=== PATIENT | male | born 2000 | race Caucasian/White ===

== ENCOUNTER 2021-02-18 12:16 | Emergency (ER) | payer BC ==
[2021-02-18] MEDS ORDERED: LIDOCAINE 1% W/EPI 1:100,000 MDV 20 ML VIAL ONE (13:31)
[2021-02-18] MEDS ORDERED: SMZ./TMP. 800/160 MG TABLET ONE (13:43)
[2021-02-18] MEDS ORDERED: DOXYCYCLINE 100 MG CAP PO ONE (13:44)
[2021-02-18] MEDS ORDERED: ONDANSETRON 4 MG/2 ML VIAL ONE (13:44)
[2021-02-18] MEDS ORDERED: NA CHLORIDE 0.9% 1,000 ML ONE (13:44)
[2021-02-18] MEDS ORDERED: TETANUS & DIPHTHERIA TOX,ADULT 0.5 ML VIAL ONE (13:45)
[2021-02-18] MEDS ORDERED: NEO/BAC/POLY/HC OPTH OINT ONE (13:45)
[2021-02-18] MEDS ORDERED: MORPHINE 4 MG/ML SYR ONE (14:11)
--- NOTE | 2021-02-18 14:28 | ER ---
Nurse's Notes [facility] Name: Feliz Laguerre Age: 21 yrs Sex: Male : 2000 Arrival Date: 02/18/2021 Time: 12:26 Bed 28 Private MD: Diagnosis: Laceration without foreign body, right knee Presentation: 02/18 12:47 Chief complaint: Patient states: was out fishing, slipped on oyster shells, large iw laceration under right knee. Coronavirus screen: At this time, the client does not indicate any symptoms associated with coronavirus-19. Ebola Screen: Patient negative for fever greater than or equal to 101.5 degrees Fahrenheit, and additional compatible Ebola Virus Disease symptoms Patient denies exposure to infectious person. Patient denies travel to an Ebola-affected area in the 21 days before illness onset. No symptoms or risks identified at this time. Complicating Factors: There are no complicating factors for this patient. Initial Sepsis Screen: Does the patient meet any 2 criteria? No. Patient's initial sepsis screen is negative. Does the patient have a suspected source of infection? No. Patient's initial sepsis screen is negative. Risk Assessment: Do you want to hurt yourself or someone else? Patient reports no desire to harm self or others. Onset of symptoms was February 18, 2021. 12:47 Method Of Arrival: Wheelchair iw 12:47 Acuity: ISAMAR 3 iw Historical: - Allergies: 12:48 No Known Allergies; iw - Home Meds: 12:48 None [Active]; iw - PMHx: 12:48 None; iw - PSHx: 12:48 Adenoid excision; iw - Immunization history:: Client reports having NOT received the Covid vaccine. Last tetanus immunization: unknown. - Social history:: Smoking status: Reported history of juuling and/or vaping. - Family history:: not pertinent. Screenin:30 Abuse screen: Denies threats or abuse. Denies injuries from another. Nutritional zb screening: No deficits noted. Tuberculosis screening: No symptoms or risk factors identified. Fall Risk None identified. Assessment: 13:00 General: Appears in no apparent distress. Behavior is calm, cooperative, appropriate zb for age. Pain: Complains of pain in right leg and right knee Pain currently is 6 out of 10 on a pain scale. Quality of pain is described as burning, sharp. Neuro: Level of Consciousness is awake, alert, obeys commands, Oriented to person, place, time, Moves all extremities. Full function. Cardiovascular: No deficits noted. Respiratory: No deficits noted. GI: No deficits noted. : No deficits noted. Derm: Wound noted right leg Wound is laceration. Musculoskeletal: Range of motion: intact in all extremities. Injury Description: Laceration sustained to right leg is clean, bleeding moderately, was sustained 1-2 hours ago. is bleeding moderately a dressing was applied. Vital Signs: 12:48 BP 106 / 55; Pulse 52; Resp 16; Temp 98.0; Pulse Ox 100% on R/A; Weight 87.54 kg; iw Height 5 ft. 10 in. (177.80 cm); Pain 4/10; 12:48 Body Mass Index 27.69 (87.54 kg, 177.80 cm) iw ED Course: 12:26 Patient arrived in ED. am2 12:43 Jerry Gonzalez MD is Attending Physician. shelli 12:48 Triage completed. iw 12:49 Arm band placed on. iw 13:16 Reta Barnes, DARRYL is Primary Nurse. zb 14:00 Patient has correct armband on for positive identification. zb 14:27 Dimitris Dent MD is Referral Physician. shelli 14:30 Inserted saline lock: 14 gauge in left antecubital area, using aseptic technique. Blood zb collected. 14:36 Knee Right 3 View XRAY In Process Unspecified. EDMS 15:00 No provider procedures requiring assistance completed. IV discontinued, intact, zb bleeding controlled, No redness/swelling at site. Pressure dressing applied. Administered Medications: 13:44 Drug: Tetanus-Diphtheria Toxoid Adult 0.5 ml {Hot Die Picker: [email or web address]. Exp: zb 09/29/2022. Lot #: [id number]. } Route: IM; Site: left deltoid; 13:50 Follow up: Response: No adverse reaction zb 13:44 Drug: Neosporin (prdcvkyp-jyotwqijrc-zvwgimhww) Ointment 1 application Route: Topical; zb Site: affected area; 13:45 Drug: NS 0.9% 1000 ml Route: IV; Rate: 1 bolus; Site: left antecubital; zb 14:20 Follow up: Response: No adverse reaction; RASS: Alert and Calm (0); IV Status: zb Completed infusion; IV Intake: 1000ml 13:45 Not Given (Patient Refused): Zofran (Ondansetron) 4 mg IVP once; over 2 minutes zb 13:45 Drug: Doxycycline 200 mg Route: PO; zb 14:00 Follow up: Response: No adverse reaction zb 13:45 Drug: Bactrim (trimethoprim-sulfamethoxazole) (160 mg-800 mg (DS) 1 tablet Route: PO; zb 14:00 Follow up: Response: No adverse reaction zb 13:49 Drug: morphine 4 mg {Note: RAss +0.} Route: IVP; Site: left antecubital; zb 14:00 Follow up: Response: No adverse reaction; Pain is decreased; RASS: Alert and Calm (0) zb Intake: 14:20 IV: 1000ml; Total: 1000ml. zb Outcome: 14:28 Discharge ordered by . shelli 15:00 Discharged to home ambulatory. zb 15:00 Condition: stable 15:00 Discharge instructions given to patient, Instructed on discharge instructions, follow up and referral plans. medication usage, Demonstrated understanding of instructions, follow-up care, medications, Prescriptions given X 3. 15:07 Patient left the ED. zb Signatures: Dispatcher [employer] EDJerry Ruffin MD MD cha Williams, Irene, RN RN Alexandra Rodrigues Zipporah, RN RN zb Corrections: (The following items were deleted from the chart) 12:49 12:48 BP 108 / 47; Pulse 52bpm; Resp 16bpm; Pulse Ox 100% RA; Temp 98.0F; 87.54 kg; iw Height 5 ft. 10 in.; BMI: 27.6; Pain 4/10; iw
--- NOTE | 2021-02-18 14:28 | EDPHYS ---
Physician Documentation [facility] Name: Feliz Laguerre Age: 21 yrs Sex: Male : 2000 Arrival Date: 02/18/2021 Time: 12:26 Bed 28 Private MD: CHEPE Physician Jerry Gonzalez HPI: 02/18 14:20 This 21 yrs old Male presents to ER via Wheelchair with complaints of shelli Laceration To Leg - knee. 14:20 The patient has a laceration related to: falling occurred at school, surf, on a log, at [facility] a restaurant, at an unknown location, at work. The laceration(s) is(are) located on the right knee. Onset: The symptoms/episode began/occurred just prior to arrival. Associated signs and symptoms: The patient has no apparent associated signs or symptoms. The patient has not experienced similar symptoms in the past. Historical: - Allergies: 12:48 No Known Allergies; iw - Home Meds: 12:48 None [Active]; iw - PMHx: 12:48 None; iw - PSHx: 12:48 Adenoid excision; iw - Immunization history:: Client reports having NOT received the Covid vaccine. Last tetanus immunization: unknown. - Social history:: Smoking status: Reported history of juuling and/or vaping. - Family history:: not pertinent. ROS: 14:20 Constitutional: Negative for fever, chills, and weight loss, Eyes: Negative for injury, shelli pain, redness, and discharge, ENT: Negative for injury, pain, and discharge, Neck: Negative for injury, pain, and swelling, Cardiovascular: Negative for chest pain, palpitations, and edema, Respiratory: Negative for shortness of breath, cough, wheezing, and pleuritic chest pain, Abdomen/GI: Negative for abdominal pain, nausea, vomiting, diarrhea, and constipation, Back: Negative for injury and pain, : Negative for injury, bleeding, discharge, and swelling, Neuro: Negative for headache, weakness, numbness, tingling, and seizure, Psych: Negative for depression, anxiety, suicide ideation, homicidal ideation, and hallucinations, Allergy/Immunology: Negative for hives, rash, and allergies, Endocrine: Negative for neck swelling, polydipsia, polyuria, polyphagia, and marked weight changes. 14:20 MS/extremity: Positive for laceration, pain, of the right knee. 14:20 Skin: Positive for laceration(s), of the right knee. Exam: 14:20 Constitutional: This is a well developed, well nourished patient who is awake, alert, shelli and in no acute distress. Head/Face: Normocephalic, atraumatic. Eyes: Pupils equal round and reactive to light, extra-ocular motions intact. Lids and lashes normal. Conjunctiva and sclera are non-icteric and not injected. Cornea within normal limits. Periorbital areas with no swelling, redness, or edema. ENT: Nares patent. No nasal discharge, no septal abnormalities noted. Tympanic membranes are normal and external auditory canals are clear. Oropharynx with no redness, swelling, or masses, exudates, or evidence of obstruction, uvula midline. Mucous membranes moist. Neck: Trachea midline, no thyromegaly or masses palpated, and no cervical lymphadenopathy. Supple, full range of motion without nuchal rigidity, or vertebral point tenderness. No Meningismus. Chest/axilla: Normal chest wall appearance and motion. Nontender with no deformity. No lesions are appreciated. Cardiovascular: Regular rate and rhythm with a normal S1 and S2. No gallops, murmurs, or rubs. Normal PMI, no JVD. No pulse deficits. Respiratory: Lungs have equal breath sounds bilaterally, clear to auscultation and percussion. No rales, rhonchi or wheezes noted. No increased work of breathing, no retractions or nasal flaring. Abdomen/GI: Soft, non-tender, with normal bowel sounds. No distension or tympany. No guarding or rebound. No evidence of tenderness throughout. Back: No spinal tenderness. No costovertebral tenderness. Full range of motion. Male : Normal genitalia with no discharge or lesions. Skin: Warm, dry with normal turgor. Normal color with no rashes, no lesions, and no evidence of cellulitis. Neuro: Awake and alert, GCS 15, oriented to person, place, time, and situation. Cranial nerves II-XII grossly intact. Motor strength 5/5 in all extremities. Sensory grossly intact. Cerebellar exam normal. Normal gait. Psych: Awake, alert, with orientation to person, place and time. Behavior, mood, and affect are within normal limits. 14:20 Musculoskeletal/extremity: ROM: full active range of motion, full passive range of motion, Circulation is intact in all extremities. Sensation intact. Compartment Syndrome exam of affected extremity: is normal. Vital Signs: 12:48 BP 106 / 55; Pulse 52; Resp 16; Temp 98.0; Pulse Ox 100% on R/A; Weight 87.54 kg; iw Height 5 ft. 10 in. (177.80 cm); Pain 4/10; 12:48 Body Mass Index 27.69 (87.54 kg, 177.80 cm) iw Laceration: 14:23 Wound Repair of 8cm ( 3.1in ) subcutaneous laceration to right knee. Linear shaped.. [facility] Hemostasis noted.. Distal neuro/vascular/tendon intact. Anesthesia: Local anesthetic administered with 12 mls of 1% lidocaine w/ Epi. Wound prep: Moderate cleansing by me, Copious irrigation. Skin closed with 7 3-0 Prolene using vertical mattress sutures and sterile technique. Dressed with pressure dressing, non-adherent dressing. Patient tolerated well. MDM: 12:43 Patient medically screened. [facility] 14:24 Differential diagnosis: tendon injury, vascular injury. Data reviewed: vital signs, [facility] nurses notes, radiologic studies, plain films. Data interpreted: environmental monitoring specialist: not applicable for this patient encounter. rate is 52 beats/min, rhythm is regular, Pulse oximetry: on room air is 100 %. Test interpretation: by ED physician or midlevel provider: plain radiologic studies. Counseling: I had a detailed discussion with the patient and/or guardian regarding: the historical points, exam findings, and any diagnostic results supporting the discharge/admit diagnosis, radiology results. 02/18 13:50 Order name: Knee Right 3 View XRAY [facility] 02/18 12:56 Order name: Suture Tray at Bedside; Complete Time: 13:46 [facility] Administered Medications: 13:44 Drug: Tetanus-Diphtheria Toxoid Adult 0.5 ml {Job Developer: [employer]. Exp: anita 09/29/2022. Lot #: [id number]. } Route: IM; Site: left deltoid; 13:50 Follow up: Response: No adverse reaction z 13:44 Drug: Neosporin (usrplqgj-yvemrvbzmi-qcndnooru) Ointment 1 application Route: Topical; zb Site: affected area; 13:45 Drug: NS 0.9% 1000 ml Route: IV; Rate: 1 bolus; Site: left antecubital; zb 14:20 Follow up: Response: No adverse reaction; RASS: Alert and Calm (0); IV Status: zb Completed infusion; IV Intake: 1000ml 13:45 Not Given (Patient Refused): Zofran (Ondansetron) 4 mg IVP once; over 2 minutes zb 13:45 Drug: Doxycycline 200 mg Route: PO; zb 14:00 Follow up: Response: No adverse reaction zb 13:45 Drug: Bactrim (trimethoprim-sulfamethoxazole) (160 mg-800 mg (DS) 1 tablet Route: PO; zb 14:00 Follow up: Response: No adverse reaction zb 13:49 Drug: morphine 4 mg {Note: RAss +0.} Route: IVP; Site: left antecubital; zb 14:00 Follow up: Response: No adverse reaction; Pain is decreased; RASS: Alert and Calm (0) zb Disposition Summary: 02/18/21 14:28 Discharge Ordered Location: Home shelli Problem: new shelli Symptoms: have improved shelli Condition: Stable shelli Diagnosis - Laceration without foreign body, right knee shelli Followup: shelli - With: Private Physician - When: 2 - 3 days - Reason: Recheck today's complaints, Continuance of care, Re-evaluation by your physician Followup: shelli - With: Dimitris Dent MD - When: 2 - 3 days - Reason: Recheck today's complaints, Re-evaluation by your physician Discharge Instructions: - Discharge Summary Sheet shelli - Laceration Care, Adult shelli - Laceration Care, Adult, [id number] Forms: - Medication Reconciliation Form [facility] - Thank You Letter [facility] - Antibiotic Education [facility] - Prescription Opioid Use [facility] Prescriptions: - Ibuprofen 600 mg Oral Tablet - take 1 tablet by ORAL route every 6 hours As needed take with food; 30 tablet; shelli Refills: 0, Product Selection Permitted - Doxycycline Hyclate 100 mg Oral Tablet - take 1 tablet by ORAL route every 12 hours; 20 tablet; Refills: 0, Product shelli Selection Permitted - Bactrim DS 800-160 mg Oral Tablet - take 1 tablet by ORAL route every 12 hours for 10 days; 20 tablet; Refills: 0, [facility] Product Selection Permitted Signatures: Dispatcher [employer] Jerry Luong MD MD cha Williams, Irene, RN RN Reta Becerril, RN RN zb
--- NOTE | 2021-02-18 14:58 | RAD REPORT ---
EXAM DESCRIPTION: RAD - Knee Right 3 View - 02/18/2021 2:36 pm CLINICAL HISTORY: Right knee pain status post injury FINDINGS: No fracture or dislocation is seen. Laceration involves the anterior soft tissues lower knee. Vague small curvilinear density in the sof t tissue may equivocal for a small foreign body
[2021-02-18 15:13] VITALS: BP 106/55; TEMP 98; O2SAT 100
== END 2021-02-18 15:07 | disposition home or self-care (01) ==
LOC: ER 12:16
PROC: 0JQN0ZZ Repair Right Lower Leg Subcutaneous Tissue and Fascia, Open Approach (ICD-10-PCS; principal; 2021-02-18)
DX: S81.011A Laceration without foreign body, right knee, initial encounter (principal); W01.198A Fall on same level from slipping, tripping and stumbling with subsequent striking against other object, initial encounter; Y93.89 Activity, other specified; Z23 Encounter for immunization
CPT/HCPCS: 96361; 73562; 90471; 90714; 96374; 99284; 12004; J7030; J2405